=== PATIENT | male | born 1990 | race Caucasian/White ===

== ENCOUNTER 2018-11-01 11:17 | Emergency (ER) | payer SELFPAY ==
[~2018-11-01] VITALS: Ht 185.4 cm; Wt 140.9 kg
[2018-11-01 11:22] VITALS: TEMP 98.4
[2018-11-01] MEDS ORDERED: FLEXERIL 1010 MG/TAB PO (12:26)
[2018-11-01] MEDS ORDERED: LIDODERM 5% PATC1 EA TP (12:26)
[2018-11-01 14:19] VITALS: BP 138/93; PULSE 87
== END 2018-11-01 14:20 | disposition home or self-care (01) ==
LOC: COL.ER 11:17
DX: S39.012A Strain of muscle, fascia and tendon of lower back, initial encounter (principal); Z98.890 Other specified postprocedural states; X50.0XXA Overexertion from strenuous movement or load, initial encounter
CPT/HCPCS: J1885; J2270; J2550

== ENCOUNTER 2018-11-20 08:51 | Outpatient (RCR) | payer OTHER ==
[~2018-11-20 08:51] MED LIST: FLEXERIL 1010 MG/TAB PO; LIDODERM 5% PATC1 EA TP
== END 2019-02-04 | disposition home or self-care (01) ==
LOC: WSOH
DX: S33.6XXA Sprain of sacroiliac joint, initial encounter (principal); M54.5 Low back pain; X50.1XXA Overexertion from prolonged static or awkward postures, initial encounter; Y93.89 Activity, other specified; Y99.0 Civilian activity done for income or pay; E66.01 Morbid (severe) obesity due to excess calories; F32.9 Major depressive disorder, single episode, unspecified; F41.9 Anxiety disorder, unspecified; G47.30 Sleep apnea, unspecified; Z88.6 Allergy status to analgesic agent; Z88.0 Allergy status to penicillin

== ENCOUNTER → 2019-04-24 | Outpatient (CLI) | payer BC ==
[2019-04-24 19:07] LABS: STREP SCREEN NEGATIVE
== END ==
LOC: COL.LAB 18:42
PROVIDERS: Emergency Medicine
DX: Z11.2 Encounter for screening for other bacterial diseases (principal)